=== PATIENT | female | born 1965 | race Caucasian/White ===

== ENCOUNTER → 2023-05-29 14:15 | Outpatient (REF) | payer BC, SELFPAY | LOC: WDC 14:15 | PROVIDERS: ATTENDING PHYSICIAN Obstetrics & Gynecology; FAMILY PHYSICIAN Family Medicine | DX: Z12.31 Encounter for screening mammogram for malignant neoplasm of breast (principal) | CPT/HCPCS: 77063; 77067 ==

== ENCOUNTER 2024-06-20 00:16 | Emergency (ER) | payer BC, SELFPAY ==
[2024-06-20 00:16] VITALS: BP 158/107
--- NOTE | 2024-06-20 01:17 | ED.GENMED ---
History of Present Illness
General
Chief Complaint: Skin Problem
Source: patient and spouse
Exam Limitations: none
Time Seen by Provider: 06/20/24 00:30
Nursing documentation reviewed up to this point in time: agreed with
History of Present Illness
History of Present Illness:
58-year-old female presenting to the emergency department today with concerns of right ring finger swelling over the past 24 hours. Claims that she trimmed her nails just prior to this notice worsening inflammation starting last night progressing
throughout the day today. No systemic symptoms. No similar symptoms in the past.
Past History
Past History
ED Past Medical History: None
ED Past Surgical History: None
Social History
Tobacco: Non-smoker
Alcohol: None
Drug: None
Personal:
Living: with family
Review of Systems
Review of Systems
Allergies reviewed?: Yes
All Other Systems: ROS reviewed and negative except as documented in HPI and ROS
Phy Exam
Physical Exam
Physical Exam:
GENERAL: Alert , in no apparent distress
EYE: pupils equal and reactive
NECK: Supple, no significant adenopathy.
ENT: o/p clr, mmm.
CARDIAC: Regular rate and rhythm .
LUNGS: Clear breath sounds bilaterally, no acute respiratory distress, no wheezes/rales/rhonchi
ABDOMEN: Soft, without focal tenderness, no r/g, no cvat
NEUROLOGICAL: Alert and oriented, no focal neuro deficits
SKIN: Right distal ring finger on the ulnar aspect of the nailbed with swelling fluctuance induration just lateral to the nailbed soft pulp of the finger warm and dry, skin intact.
MUSCULOSKELETAL: No edema, well perfused.
PSYCH: Normal and appropriate interaction.
Course
Orders/Labs/Results
Orders:
Orders
06/20/24 01:16
Cephalexin Monohydrate [Keflex] 500 mg PO NOW STA
Vital Signs
Initial and Last Documented VS:
Initial Vital Signs
Temp Pulse Resp BP Pulse Ox
98.2 F 63 16 158/107 99
06/20/24 00:16 06/20/24 00:16 06/20/24 00:16 06/20/24 00:16 06/20/24 00:16
Last Documented Vital Signs
Temp Pulse Resp BP Pulse Ox
98.2 F 63 16 158/107 99
06/20/24 00:16 06/20/24 00:16 06/20/24 00:16 06/20/24 00:16 06/20/24 00:16
Procedures
Incision/Drainage/Joint Aspiration
Right Distal Ulnar Fourth Finger:
Anethesia: 1% Lidocaine and other (Digital block performed)
Preparation: cleaned with alcohol wipe
Type of procedure: incise and drain
Nature of site: abscess
Description of abscess: less than 3cm
Loculations broken up: No
How much fluid was obtained?: small amount
Fluid description: purulent
Treatment: left open for drainage
MDM/Problems Addressed
MDM/Problems Addressed:
58-year-old female presenting with paronychia. This was incised drained. There was some surrounding inflammation was started on Keflex also written for mupirocin. Pulp finger without significant hardening. No evidence of felon at this point.
Advised for close outpatient follow-up. Return precautions given.
*Critical Care Note
Total Time (30-74mins, 75-104mins- exclusive of procedures): Not Applicable
ED Attending Note
-
Portions of this chart may have been created with voice recognition software.� Occasional wrong word or��sound alike� substitutions may have occurred due to the inherent limitations of voice recognition software.
Discharge Plan
Departure
Patient Disposition: Home (Routine Discharge)
Date of Disposition: 06/20/24
Time of Disposition: 01:19
Patient with high blood pressure during this ER visit?: No
Condition: Good
Covid-19: Not Applicable
Discharge Problem:
Paronychia
Instructions: Paronychia - ED discharge instructions
Prescriptions:
New
cephalexin 500 mg capsule
500 mg PO TID 5 Days Qty: 15 0RF
mupirocin 2 % ointment
1 applic topical TID Qty: 15 0RF
Referrals:
Kwame Roberts DO [Family Provider] -
Activity Restrictions/Additional Instructions:
You came to the emergency department today with concerns of swelling and discomfort to your right ring finger. This is with a small abscess paronychia. This was drained here in the ER. Please keep the area clean covered and use warm compresses.
Please use the prescribed topical antibiotic to the area. Please also take the prescribed oral antibiotic. Please help closely with your primary care doctor. Return for any worsening symptoms.
Interventions
Interventions:
*General Assessment Last Done: 06/20/24 00:16
*Neglect/Abuse Screening Last Done: 06/20/24 00:16
*ED COVID-19 Vaccine History Last Done: 06/20/24 00:16
Discharge Date and Time
Print Language: AUSTRIAN
[2024-06-20] MEDS: KEFLEX 500 MG PO (01:28)
== END 2024-06-20 01:33 | disposition home or self-care (01) ==
LOC: EMR 00:16
PROVIDERS: EMERGENCY PHYSICIAN Emergency Medicine; FAMILY PHYSICIAN Family Medicine
DX: L03.011 Cellulitis of right finger (principal)
CPT/HCPCS: 10060; 99283

== ENCOUNTER → 2024-08-21 15:16 | Outpatient (REF) | payer BC, SELFPAY | LOC: WDC 15:16 | PROVIDERS: ATTENDING PHYSICIAN Obstetrics & Gynecology; FAMILY PHYSICIAN Family Medicine | DX: Z12.31 Encounter for screening mammogram for malignant neoplasm of breast (principal) | CPT/HCPCS: 77063; 77067 ==